=== PATIENT | female | born 1960 | race Caucasian/White ===

== ENCOUNTER 2023-06-11 14:10 | Inpatient (IN) | payer OTHER ==
[~2023-06-11] VITALS: Ht 160 cm; Wt 26.8 kg
[2023-06-11 14:21] VITALS: BP_SYST 192; PULSE 67; RESP 18; TEMP 98.3; O2SAT 98
[2023-06-11 14:51] LABS: BILIRUBIN,URINE NEGATIVE (NEGATIVE); BLOOD, URINE TRACE (NEGATIVE); CLARITY/URINE CLEAR (CLEAR); COLOR,URINE YELLOW (YELLOW); GLUCOSE,URINE NEGATIVE (NEGATIVE); KETONES,URINE NEGATIVE (NEGATIVE); LEUKOCYTE ESTERASE ,URINE 1+ (NEGATIVE); NITRITE, URINE NEGATIVE (NEGATIVE); PH,URINE 5.5 (5.0-8.0); PROTEIN URINE NEGATIVE (NEGATIVE); UROBILINOGEN,URINE 0.2 (0.2-1.0)
[2023-06-11 15:03] LABS: BACTERIA,URINE FEW /HPF (None Seen)
[2023-06-11 15:10] LABS: BASOPHILS # (AUTO) 0.1 K/uL (0.0-0.2); BASOPHILS % (AUTO) 0.6 % (0.0-2.0); EOSINOPHILS # (AUTO) 0.1 K/uL (0.0-0.4); EOSINOPHILS % (AUTO) 0.9 % (0.0-4.0); HEMOGLOBIN 11.8 g/dL (12.0-16.0); LYMPHOCYTES # (AUTO) 1.3 K/uL (1.0-5.5); LYMPHOCYTES % (AUTO) 13.2 % (20.5-51.5); MEAN CORPUSCULAR HEMOGLOBIN 30 pg (27-31); MEAN CORPUSCULAR HGB CONC 33 % (32-36); MEAN CORPUSCULAR VOLUME 91 fL (79.0-98.0); MONOCYTES # (AUTO) 0.4 K/uL (0.0-1.0); NEUTROPHILS # (AUTO) 8.2 K/uL (1.8-7.7); NEUTROPHILS % (AUTO) 81.3 % (40.0-70.0); PLATELET COUNT (AUTO) 349 K/uL (130-430); RED BLOOD CELL COUNT(AUTO) 3.97 MIL/uL (4.2-6.2); RED CELL DISTRIBUTION WIDTH 13.2 % (9.0-15.0); WHITE BLOOD COUNT (AUTO) 10.1 K/uL (4.8-10.8)
[2023-06-11 15:21] LABS: CALCIUM 8.8 mg/dL (8.4-11.0); CREATININE 0.71 mg/dL (0.55-1.30)
[2023-06-11 15:26] LABS: ALBUMIN 3.5 g/dL (3.4-4.8); TOTAL BILIRUBIN 0.3 mg/dL (0.0-1.0); TOTAL PROTEIN, SERUM 7.6 g/dL (6.4-8.3)
[2023-06-11] MEDS ORDERED: NACL 0.9% 1,000 ML IV ONE (16:00)
[2023-06-11] MEDS ORDERED: cefTRIAXone 1 GM IVPB PREMIX 50 ML IV ONE ×2 (16:00→16:15)
[2023-06-11] MEDS ORDERED: MORPHINE 4 MG INJ. 4 MG/ML VIAL IVP ONE (16:00)
[2023-06-11] MEDS ORDERED: ONDANSETRON HCL 4 MG/2 ML VIAL ONE ×2 (16:14→16:18)
[2023-06-11] MEDS ORDERED: ONDANSETRON HCL 4 MG/2 ML VIAL IVP PRN (18:15)
[2023-06-11] MEDS ORDERED: MORPHINE 2 MG/ML INJ. SYRINGE IVP PRN (18:15)
[2023-06-11] MEDS ORDERED: hydrALAZINE HCL 20 MG/ML VIAL IVP ONE (18:15)
[2023-06-11 18:51] LABS: PROTHROMBIN TIME 10.4 SECS (9.5-12.5)
[2023-06-11] MEDS: MORPHINE 4 MG INJ. 4 MG/ML VIAL IVP PRN (20:51)
[2023-06-11 20:56] VITALS: BP_SYST 185; PULSE 88; RESP 16; TEMP 97.4
[2023-06-11] MEDS: D5/0.45 NS 1,000 ML IV SCH (21:27)
[2023-06-11] MEDS ORDERED: PIPERACILLIN/TAZOBACTAM 3.375 GM/VIAL (ZOSYN) IV ONE (23:35)
[2023-06-11] MEDS: PIPERACILLIN/TAZO 3.375/DEX-IS 50 ML IV SCH (23:50)
[2023-06-12] VITALS (10 sets, daily range): BP systolic 118–152; PULSE 82–96; RESP 16–18; TEMP 97.6–98.5; O2SAT 91–100
[2023-06-12] MEDS ORDERED: PIPERACILLIN/TAZOBACTAM 3.375 GM/VIAL (ZOSYN) IV ONE (00:12)
[2023-06-12] MEDS: TEMAZEPAM 7.5 MG CAPSULE PO PRN ×2 (00:58→23:33)
[2023-06-12] MEDS: D5/0.45 NS 1,000 ML IV SCH ×3 (05:38→23:34)
[2023-06-12] MEDS: PIPERACILLIN/TAZO 3.375/DEX-IS 50 ML IV SCH ×4 (05:39→23:33)
[2023-06-12] MEDS: MORPHINE 4 MG INJ. 4 MG/ML VIAL IVP PRN (08:55)
[2023-06-12] MEDS ORDERED: LR 1,000 ML IV.SOLN IV ONE (14:30)
[2023-06-12] MEDS ORDERED: MIDAZOLAM HCL/PF 2 MG/2 ML SYRINGE ONE (14:30)
[2023-06-12] MEDS ORDERED: SEVOFLURANE 15 MIN GAS INH ONE (14:30)
[2023-06-12] MEDS ORDERED: NS 1000 ML IV.SOLN IV ONE (14:30)
[2023-06-12] MEDS ORDERED: NEOSTIGMINE METHYLSULFATE 1 MG/ML, 10 ML VIAL ONE (14:30)
[2023-06-12] MEDS ORDERED: PROPOFOL 200MG/ 20ML VIAL (DIPRIVAN) IV ONE (14:30)
[2023-06-12] MEDS ORDERED: GLYCOPYRROLATE 0.2 MG/ML VIAL ONE (14:30)
[2023-06-12] MEDS ORDERED: DEXAMETHASONE SOD PHOSPHATE 4 MG/ML VIAL ONE (14:30)
[2023-06-12] MEDS ORDERED: ROCURONIUM BROMIDE 10 MG/ML (ZEMURON) ONE (14:30)
[2023-06-12] MEDS ORDERED: NS IRRIG SOLN 1000 ML IR ONE (14:30)
[2023-06-12] MEDS ORDERED: HYDROMORPHONE HCL IN 0.9% NACL 0.2 MG/ML DRIP IV ONE (14:30)
[2023-06-12] MEDS ORDERED: ePHEDrine sulfate 50 MG/ML VIAL ONE (14:30)
[2023-06-12] MEDS ORDERED: BUPIVACAINE /PF 0.25% 30 ML VIAL INJ ONE (14:30)
[2023-06-12] MEDS ORDERED: HYDROmorphone 1 MG/ML INJ. CARTRIDGE IVP PRN ×2 (15:30)
[2023-06-12] MEDS ORDERED: ONDANSETRON HCL 4 MG/2 ML VIAL IVP PRN (15:30)
[2023-06-12] MEDS ORDERED: METOCLOPRAMIDE HCL 10 MG/2 ML VIAL IVP PRN (15:30)
[2023-06-12] MEDS ORDERED: MEPERIDINE HCL/PF 25 MG/ML DISP.SYRIN IVP PRN (15:30)
[2023-06-12] MEDS ORDERED: NALOXONE HCL 0.4 MG/ML AMP (NARCAN) IVP PRN ×2 (15:30)
[2023-06-12 18:58] LABS: ALBUMIN 2.7 g/dL (3.4-4.8); CALCIUM 8.2 mg/dL (8.4-11.0); CREATININE 0.79 mg/dL (0.55-1.30); POTASSIUM 3.7 mmol/L (3.5-5.1); TOTAL BILIRUBIN 0.5 mg/dL (0.0-1.0); TOTAL PROTEIN, SERUM 6.5 g/dL (6.4-8.3)
[2023-06-12] MEDS ORDERED: traMADol HCL HCL 50 MG TABLET (ULTRAM) PO PRN (21:00)
[2023-06-12] MEDS: HYDROcodone/ACETAMIN 5-325 MG TAB (NORCO/ VICODIN) PO PRN (21:15)
[2023-06-13] VITALS (8 sets, daily range): BP systolic 117–154; PULSE 58–88; RESP 16–18; TEMP 96.9–98.4; O2SAT 94–99
[2023-06-13 05:14] LABS: BASOPHILS % (AUTO) 0.1 % (0.0-2.0); HEMATOCRIT 30.7 % (36-48); HEMOGLOBIN 10.1 g/dL (12.0-16.0); LYMPHOCYTES # (AUTO) 0.7 K/uL (1.0-5.5); LYMPHOCYTES % (AUTO) 3.8 % (20.5-51.5); MEAN CORPUSCULAR HEMOGLOBIN 30 pg (27-31); MEAN CORPUSCULAR HGB CONC 33 % (32-36); MEAN CORPUSCULAR VOLUME 92 fL (79.0-98.0); MONOCYTES # (AUTO) 0.6 K/uL (0.0-1.0); MONOCYTES % (AUTO) 3.6 % (1.7-9.3); NEUTROPHILS # (AUTO) 16.1 K/uL (1.8-7.7); NEUTROPHILS % (AUTO) 92.5 % (40.0-70.0); PLATELET COUNT (AUTO) 261 K/uL (130-430); RED BLOOD CELL COUNT(AUTO) 3.34 MIL/uL (4.2-6.2); RED CELL DISTRIBUTION WIDTH 13.4 % (9.0-15.0); WHITE BLOOD COUNT (AUTO) 17.4 K/uL (4.8-10.8)
[2023-06-13] MEDS: PIPERACILLIN/TAZO 3.375/DEX-IS 50 ML IV SCH ×4 (05:44→23:26)
[2023-06-13] MEDS: HYDROcodone/ACETAMIN 5-325 MG TAB (NORCO/ VICODIN) PO PRN ×3 (05:52→23:27)
[2023-06-13] MEDS: D5/0.45 NS 1,000 ML IV SCH ×2 (09:58→20:58)
[2023-06-13] MEDS: TEMAZEPAM 7.5 MG CAPSULE PO PRN (23:26)
[2023-06-14 02:50] VITALS: BP_SYST 124; PULSE 68; RESP 18; TEMP 98.8; O2SAT 92
[2023-06-14] MEDS: PIPERACILLIN/TAZO 3.375/DEX-IS 50 ML IV SCH ×3 (05:19→17:18)
[2023-06-14] MEDS: D5/0.45 NS 1,000 ML IV SCH ×2 (06:58→16:15)
[2023-06-14 08:00] VITALS: BP_SYST 136; PULSE 83; RESP 16; TEMP 97.8; O2SAT 100; O2SAT 98
[2023-06-14 11:15] VITALS: BP_SYST 145; PULSE 62; RESP 18; TEMP 98.2; O2SAT 98
[2023-06-14 12:00] VITALS: BP_SYST 122; PULSE 85; RESP 16; TEMP 98.2; O2SAT 100
[2023-06-14] MEDS ORDERED: LEVO250T73 PO (13:55)
[2023-06-14] MEDS ORDERED: TRAM50TA2 PO (13:55)
[2023-06-14 16:07] VITALS: BP_SYST 139; PULSE 65; RESP 18; TEMP 98; O2SAT 99
[2023-06-14 16:46] LABS: BASOPHILS # (AUTO) 0.1 K/uL (0.0-0.2); BASOPHILS % (AUTO) 0.6 % (0.0-2.0); EOSINOPHILS # (AUTO) 0.2 K/uL (0.0-0.4); EOSINOPHILS % (AUTO) 1.8 % (0.0-4.0); HEMATOCRIT 30.9 % (36-48); HEMOGLOBIN 10.1 g/dL (12.0-16.0); LYMPHOCYTES % (AUTO) 23.2 % (20.5-51.5); MEAN CORPUSCULAR HEMOGLOBIN 30 pg (27-31); MEAN CORPUSCULAR HGB CONC 33 % (32-36); MEAN CORPUSCULAR VOLUME 91 fL (79.0-98.0); MONOCYTES # (AUTO) 0.7 K/uL (0.0-1.0); MONOCYTES % (AUTO) 7.6 % (1.7-9.3); NEUTROPHILS # (AUTO) 5.8 K/uL (1.8-7.7); NEUTROPHILS % (AUTO) 66.8 % (40.0-70.0); PLATELET COUNT (AUTO) 256 K/uL (130-430); RED BLOOD CELL COUNT(AUTO) 3.39 MIL/uL (4.2-6.2); RED CELL DISTRIBUTION WIDTH 13.1 % (9.0-15.0); WHITE BLOOD COUNT (AUTO) 8.7 K/uL (4.8-10.8)
[2023-06-14 17:11] LABS: CALCIUM 8.3 mg/dL (8.4-11.0); CREATININE 0.53 mg/dL (0.55-1.30); POTASSIUM 3.7 mmol/L (3.5-5.1)
[2023-06-14 17:16] LABS: ALBUMIN 2.6 g/dL (3.4-4.8); TOTAL BILIRUBIN 0.3 mg/dL (0.0-1.0); TOTAL PROTEIN, SERUM 6.3 g/dL (6.4-8.3)
[2023-06-14 19:55] VITALS: BP_SYST 146; PULSE 79; RESP 18; TEMP 99.3; O2SAT 96
== END 2023-06-14 21:45 | disposition home or self-care (01) | DRG 417 ==
LOC: SED 14:10 → SMU 18:05 → STU 06-12 17:30 → SMU 06-13 12:27
PROVIDERS: ADMIT Specialist; ATTEND Specialist
PROC: 0DNU4ZZ Release Omentum, Percutaneous Endoscopic Approach (ICD-10-PCS; 2023-06-12)
PROC: 0FT44ZZ Resection of Gallbladder, Percutaneous Endoscopic Approach (ICD-10-PCS; principal; 2023-06-12 14:30)
DX: K80.00 Calculus of gallbladder with acute cholecystitis without obstruction (principal); K65.3 Choleperitonitis; K82.1 Hydrops of gallbladder; Z68.1 Body mass index [BMI] 19.9 or less, adult; I10 Essential (primary) hypertension; E66.9 Obesity, unspecified; Z90.710 Acquired absence of both cervix and uterus
CPT/HCPCS: 36415; 71045; 76376; 76700-TC; 78226; 80053; 81000; 82150; 83690; 85025; 85610-TC; 86886; 86900; 86901; 87040; 87081; 87086; 88304; 93005; 93306; 96365; 96375; 99285; A9537; C1727; G0378; J0360; J0696; J1100; J2270; J2405; J2543; J2704; J2710; J3465; J3490; J7030; J7060; J7120